=== PATIENT | female | born 1950 | race Hispanic/Latino ===

== ENCOUNTER 2018-11-02 13:29 | Observation (INO) | payer OTHER ==
[~2018-11-02] VITALS: Ht 157.5 cm; Wt 49.9 kg
[2018-11-02 14:48] LABS: BASOPHILS % (AUTO) 0.9 % (0.0-5.0); HEMATOCRIT 41.7 % (36-48); LYMPHOCYTES % (AUTO) 23.9 % (21.0-51.0); MEAN CORPUSCULAR HEMOGLOBIN 30.1 pg (27.0-33.0); MEAN CORPUSCULAR HGB CONC 33.4 g/dL (32.0-36.0); MEAN CORPUSCULAR VOLUME 90.2 fL (79-99); MONOCYTES % (AUTO) 7.5 % (3.0-13.0); NEUTROPHILS % (AUTO) 65.7 % (40.0-77.0); NUCLEATED RED BLOOD CELLS 0.1 % (0.0-0.19); PLATELET COUNT (AUTO) 265 K/uL (130-400); RED BLOOD CELL COUNT(AUTO) 4.63 MIL/uL (4.00-5.50); RED CELL DISTRIBUTION WIDTH 12.7 % (11.0-15.5)
[2018-11-02 15:11] LABS: CREATININE 0.7 mg/dL (0.5-1.5); POTASSIUM 4.2 mmol/L (3.5-5.1)
[2018-11-02 15:16] LABS: ALBUMIN 3.9 g/dL (3.5-5.0); BILIRUBIN,TOTAL 0.5 mg/dL (0.2-1.0); TOTAL PROTEIN, SERUM 7.4 g/dL (6.0-8.3)
[2018-11-02] MEDS ORDERED: METRONIDAZOLE 500 MG TABLET ONE (15:36)
[2018-11-02] MEDS ORDERED: ZOSYN 3.375GM+NS 50ML 50 ML IV ONE ×2 (15:36→17:32)
[2018-11-02] MEDS ORDERED: SODIUM CHLORIDE 0.9% 50 ML IV ONE ×2 (15:36→17:33)
[2018-11-02] MEDS ORDERED: ACETAMINOPHEN-CODEINE 300/30MG TAB PO PRN (16:15)
[2018-11-02 16:27] LABS: ERYTHROCYTE SEDIMENTATION RATE 15 MM/HR (0-30)
[2018-11-02] MEDS ORDERED: FAMOTIDINE 20MG TAB 20 MG TAB ONE (16:34)
[2018-11-02] MEDS ORDERED: LIDOCAINE HCL 2% VISCOUS 15 ML UDCUP ONE (16:34)
[2018-11-02] MEDS ORDERED: MAG HYDROX/AL HYDROX/SIMETH ES 30 ML SUSP UDCUP ONE (16:34)
[2018-11-02] MEDS ORDERED: SODIUM CHLORIDE 0.9% 1000ML 1,000 ML IV ONE (17:32)
[2018-11-02 18:25] VITALS: BP 107/56
--- NOTE | 2018-11-02 18:25 | NUR ---
ER ADMIT PATIENT ADMITTED FROM ER VIA WHEELCHAIR IN STABLE CONDITION. FAMILY PRESENT AT BEDSIDE. BOTH ORIENTED TO ROOM AND USE OF CALL LIGHT. 4TH AND 5TH DIGITS TO THE LEFT HAND HAS BLISTERS WHICH ARE WEEPING. WILL ENDORSE TO ONCOMING SHIFT.
[2018-11-02] MEDS ORDERED: LEVE1000 PO (18:44)
[2018-11-02] MEDS ORDERED: CHOL200016 PO (18:44)
[2018-11-02] MEDS ORDERED: CITA-107 PO (18:44)
[2018-11-02] MEDS ORDERED: PANT40TA25 PO (18:44)
[2018-11-02 19:13] VITALS: BP 99/73
[2018-11-02] MEDS: ZOSYN 3.375GM+NS 50ML 50 ML IV SCH (21:12)
[2018-11-02] MEDS: SODIUM CHLORIDE 0.9% 1000ML 1,000 ML IV SCH (21:12)
[2018-11-02 23:14] VITALS: BP 105/57
[2018-11-03] VITALS (24 sets, daily range): BP systolic 93–134; BP diastolic 36–68
[2018-11-03] MEDS: ZOSYN 3.375GM+NS 50ML 50 ML IV SCH ×3 (05:11→20:51)
[2018-11-03] MEDS: PANTOPRAZOLE SODIUM 40 MG TABLET.DR PO SCH (09:00)
[2018-11-03] MEDS: SODIUM CHLORIDE 0.9% 1000ML 1,000 ML IV SCH ×2 (09:59→16:35)
--- NOTE | 2018-11-03 15:10 | NUR ---
TO OR PATIENT TRANSFERRED TO OR HOLDING VIA HOSPITAL BED. FAMILY WITH PATIENT.
[2018-11-03] MEDS ORDERED: DEXAMETHASONE SOD PHOSPHATE 10MG/ML 1ML VIAL ONE (15:58)
[2018-11-03] MEDS ORDERED: LIDOCAINE PF 2% 5ML ABBOJECT ONE (15:58)
[2018-11-03] MEDS ORDERED: PROPOFOL 10 MG/ML 20ML VIAL IV ONE ×2 (15:59→16:05)
[2018-11-03] MEDS ORDERED: FENTANYL CITRATE PF 50 MCG/1 ML 2ML VIAL ONE (15:59)
[2018-11-03] MEDS ORDERED: ONDANSETRON HCL 4 MG/2 ML VIAL ONE (15:59)
[2018-11-03] MEDS ORDERED: MIDAZOLAM HCL 1 MG/ML 2ML VIAL ONE (15:59)
[2018-11-03] MEDS ORDERED: EPHEDRINE SULFATE 50 MG/ML AMPULE ONE (16:13)
[2018-11-03] MEDS ORDERED: NEOMY SULF/BACITRAC ZN/POLY OINT 30GM TUBE TP ONE (16:18)
--- NOTE | 2018-11-03 17:37 | NUR ---
POST SURGERY PATIENT RECEIVED FROM PACU VIA HOSPITAL BED IN STABLE CONDITION. RIGHT HAND IS OPEN TO AIR WITH ORDERS NOT TO COVER. FAMILY IS PRESENT IN ROOM. PATIENT WAS REORIENTED TO ROOM AND USE OF CALL LIGHT. POST OP VITAL SIGNS HAVE BEEN INITIATED. WILL CONTINUE TO MONITOR. PATIENT DENIES PAIN AT THIS TIME.
[2018-11-04 00:15] VITALS: BP 106/43
[2018-11-04] MEDS: SODIUM CHLORIDE 0.9% 1000ML 1,000 ML IV SCH (01:02)
[2018-11-04 03:13] VITALS: BP 93/46
[2018-11-04] MEDS: ZOSYN 3.375GM+NS 50ML 50 ML IV SCH (05:05)
[2018-11-04 08:00] VITALS: BP 105/58
[2018-11-04] MEDS ORDERED: **HM** VIT D3 2000 UNITS PO SCH (08:00)
[2018-11-04] MEDS: PANTOPRAZOLE SODIUM 40 MG TABLET.DR PO SCH (08:21)
[2018-11-04] MEDS ORDERED: LEVETIRACETAM 500 MG TABLET PO SCH (09:00)
[2018-11-04] MEDS ORDERED: CITALOPRAM 20 MG TABLET PO SCH (09:00)
[2018-11-04 11:00] VITALS: BP 109/51
--- NOTE | 2018-11-04 12:47 | NUR ---
INSTRUCTIONS DISCHARGE INSTRUCTIONS GIVEN TO PATIENT AND FAMILY USING TEACH BACK. NO NEW PRESCRIPTIONS, F/U APPOINTMENT WILL BE MADE BY FAMILY ON MONDAY DURING REGULAR BUSINESS HOURS. NO QUESTIONS OR CONCERNS VOICED. IV HAS BEEN REMOVED WITH TIP INTACT. BAND AID APPLIED TO SITE. PENDING RIDE HOME.
== END 2018-11-04 13:42 | disposition home or self-care (01) ==
LOC: EDH 13:29 → EDHIP 15:51 → 4AH 18:11
PROVIDERS: ADMIT Internal Medicine; ATTEND Internal Medicine
DX: T23.232A Burn of second degree of multiple left fingers (nail), not including thumb, initial encounter (principal); R56.9 Unspecified convulsions; L03.011 Cellulitis of right finger
CPT/HCPCS: 16020; 36415; 73130; 80053; 85025; 85651; 86140; 87070; 87076; 87077; 87186; 96365; 96366 ×3; 99284; G0378 ×46; J1100; J2001; J2250; J2405; J2543 ×8; J2704 ×2; J3010; J3490; J7030; J7120

== ENCOUNTER 2018-12-18 21:52 | Inpatient (IN) | payer OTHER | END 2018-12-21 18:00 | disposition home or self-care (01) | LOC: EDH 21:52 → EDHIP 12-19 04:02 → WSH 12-19 12:26 | DX: K85.90 Acute pancreatitis without necrosis or infection, unspecified (principal); K82.4 Cholesterolosis of gallbladder; G40.909 Epilepsy, unspecified, not intractable, without status epilepticus ==